=== PATIENT | female | born 1995 | race Caucasian/White ===

== ENCOUNTER 2018-04-02 21:21 | Outpatient (CLI) | payer OTHER | END 2018-04-02 22:25 | disposition home or self-care (01) | LOC: M LDO 21:21 | DX: O62.2 Other uterine inertia (principal); Z3A.37 37 weeks gestation of pregnancy | CPT/HCPCS: 59025 ==

== ENCOUNTER 2018-04-04 18:59 | Outpatient (CLI) | payer OTHER | END 2018-04-04 20:15 | disposition home or self-care (01) | LOC: M LDO 18:59 | DX: O36.8130 Decreased fetal movements, third trimester, not applicable or unspecified (principal); Z3A.37 37 weeks gestation of pregnancy; O47.1 False labor at or after 37 completed weeks of gestation; O99.413 Diseases of the circulatory system complicating pregnancy, third trimester; I47.1 Supraventricular tachycardia; O99.513 Diseases of the respiratory system complicating pregnancy, third trimester; J45.909 Unspecified asthma, uncomplicated; O99.353 Diseases of the nervous system complicating pregnancy, third trimester; G43.909 Migraine, unspecified, not intractable, without status migrainosus | CPT/HCPCS: 59025 ==